=== PATIENT | female | born 1985 | race Two or more races ===

== ENCOUNTER 2023-01-24 11:14 | Outpatient (REF) | payer MEDICAID, SELFPAY ==
[2023-01-24 13:01] LABS: MANUAL DIFF FLAG NO
[2023-01-24 13:18] LABS: Basophils Absolute Auto 0.1 X10*3/uL (0.0-0.2); Basophils Percent Auto 0.7 % (0-2); Eosinophils Absolute Auto 0.1 X10*3/uL (0.0-0.4); Eosinophils Percent Auto 1.6 % (0-4); Hematocrit 39.7 % (37.0-47.0); Hemoglobin 13.1 g/dl (12.0-16.0); Imm Gran Abs Auto 0.02 X10*3/uL (0.00-0.03); Imm Gran Pct Auto 0.3 % (0.0-0.4); Lymphocytes Absolute Auto 2.5 X10*3/uL (1.2-4.9); Lymphocytes Percent Auto 33.3 % (20-40); Mean Corpuscular Hemoglobin 28.9 pg (27.0-33.0); Mean Corpuscular Volume 87.4 fL (80.0-98.0); Mean Platelet Volume 11.4 fL (9.4-12.3); Monocytes Absolute Auto 0.4 X10*3/uL (0.1-1.2); Monocytes Percent Auto 5.4 % (2-11); Neutrophils Absolute Auto 4.5 x10*3/uL (2.0-8.3); Neutrophils Percent Auto 58.7 % (45-73); Platelet Count 289 X10*3/uL (160-400); Red Blood Count 4.54 X10*6/uL (4.20-5.50); Red Cell Distribution Width 13.2 % (11.0-16.0); White Blood Count 7.6 X10*3/uL (4.8-10.8)
[2023-01-24 13:20] LABS: INTERNATIONAL NORM RATIO 0.9 (0.9-1.1); Prothrombin Time 10.8 SEC (11.1-13.3)
[2023-01-24 13:23] LABS: Partial Thromboplastin Time 24.7 SEC (26.0-36.4)
[2023-01-24 13:52] LABS: Erythrocyte Sedimentation Rate 11 MM/HR (0-20)
[2023-01-24 13:53] LABS: Alanine Aminotransferase 18 U/L (0-31); Albumin Level 4.4 g/dL (3.5-5.0); Alkaline Phosphatase 71 U/L (39-117); Anion Gap 12 (12-20); Aspartate Amino Transferase 18 U/L (5-31); Bilirubin Direct 0.2 mg/dL (0.0-0.5); Bilirubin Total 0.6 mg/dL (0.0-1.0); Blood Urea Nitrogen 10 mg/dL (9-16); C Reactive Protein 0.59 mg/dL (< or = 0.50); Calcium 9.5 mg/dL (8.4-10.2); Carbon Dioxide 27 mmol/L (22-29); Chloride 105 mmol/L (96-108); Cholesterol 217 mg/dL (<200); Estimated Glomerular Filt Rate > 60; Glucose Random 104 mg/dL (60-115); HDL Cholesterol 46 mg/dL (>40); LDL Cholesterol Calculated 145 mg/dL (<100); Potassium 3.8 mmol/L (3.3-5.1); Sodium 140 mmol/L (135-145); Total Protein 7.7 g/dL (6.5-8.0); Triglycerides 130 mg/dL (<150)
[2023-01-24 13:57] LABS: Rheumatoid Factor < 13.0 IU/mL (<15.0)
[2023-01-24 13:58] LABS: Estimated Average Glucose 120 mg/dL; Hemoglobin A1c % 5.8 % (<6.0)
[2023-01-24 14:11] LABS: TSH reflex Free T4 0.91 uIU/mL (0.32-4.0)
[2023-01-25 04:52] LABS: HBc Num1 0.04 S/CO (0.00-0.79); HBsAGNum1 0.35 S/CO (0.00-0.99); HIV AB/AG Nonreactive (Nonreactive); HIV Num 1 0.06 S/CO (0.00-0.99); Hepatitis A Antibody IgM 0.14 Index (0-0.79); Hepatitis B Core Antibody Nonreactive (Nonreactive); Hepatitis B Surface Antigen Negative (Negative); ~HepC Num1 0.05 S/CO (0.00-0.79); ~Hepatitis A Antibody IgM Nonreactive (Nonreactive); ~Hepatitis B Surface Antibody REACTIVE (Nonreactive); ~Hepatitis C Antibody Nonreactive (Nonreactive)
[2023-01-30 08:34] LABS: Anti Nuclear Antibody Screen NEGATIVE (NEGATIVE)
== END 2023-01-24 11:15 | disposition home or self-care (01) ==
LOC: HO.HHCL 11:14
PROVIDERS: Visit Provider Internal Medicine
DX: R23.3 Spontaneous ecchymoses (principal); R53.82 Chronic fatigue, unspecified; R52 Pain, unspecified
CPT/HCPCS: 36415; 80048; 80061; 80076; 83036; 84443; 85025; 85610; 85652; 85730; 86038; 86140; 86431; 86704; 86706; 86709; 86803; 87340; 87389

== ENCOUNTER 2023-08-24 11:57 | Outpatient (REF) | payer MEDICAID, SELFPAY ==
[2023-08-24 13:32] LABS: MANUAL DIFF FLAG NO
[2023-08-24 13:42] LABS: Basophils Percent Auto 0.4 % (0-2); Eosinophils Absolute Auto 0.1 X10*3/uL (0.0-0.4); Eosinophils Percent Auto 0.8 % (0-4); Hematocrit 42.6 % (37.0-47.0); Imm Gran Abs Auto 0.02 X10*3/uL (0.00-0.03); Imm Gran Pct Auto 0.2 % (0.0-0.4); Lymphocytes Absolute Auto 3.2 X10*3/uL (1.2-4.9); Lymphocytes Percent Auto 35.5 % (20-40); Mean Corpuscular HGB Conc 32.9 g/dl (31.0-35.0); Mean Corpuscular Hemoglobin 29.2 pg (27.0-33.0); Mean Corpuscular Volume 88.9 fL (80.0-98.0); Mean Platelet Volume 11.5 fL (9.4-12.3); Monocytes Absolute Auto 0.5 X10*3/uL (0.1-1.2); Monocytes Percent Auto 5.1 % (2-11); Neutrophils Absolute Auto 5.2 x10*3/uL (2.0-8.3); Platelet Count 294 X10*3/uL (160-400); Red Blood Count 4.79 X10*6/uL (4.20-5.50); Red Cell Distribution Width 13.1 % (11.0-16.0)
[2023-08-24 14:18] LABS: TSH reflex Free T4 0.59 uIU/mL (0.32-4.0)
== END 2023-08-24 11:58 | disposition home or self-care (01) ==
LOC: HO.HHCL 11:57
PROVIDERS: Visit Provider Nurse Practitioner
DX: N20.0 Calculus of kidney (principal); Z87.898 Personal history of other specified conditions
CPT/HCPCS: 36415; 84443; 85025; 87086

== ENCOUNTER 2024-01-28 11:38 | Outpatient (REF) | payer MEDICAID, SELFPAY ==
[2024-01-28 13:57] LABS: TSH reflex Free T4 0.75 uIU/mL (0.32-4.0)
[2024-01-28 17:08] LABS: Appearance Urine Turbid; Color Urine Yellow; Glucose Urine UA Negative (Negative); Leukocyte Esterase Urine Negative (Negative); Nitrite Urine Negative (Negative); PH 5.5 (5.0-9.0); Specific Gravity - Urine >= 1.030 (1.005-1.025); UMIC TRIGGER UACC YES; Urine Blood Moderate (2+) (Negative); Urine Ketones Negative (Negative); Urine Protein Negative (Neg-Trace)
[2024-01-28 17:48] LABS: WBC Urine 0-5 /HPF (0-5)
[2024-01-28 17:49] LABS: Bacteria Urine Trace (None Seen); Hyaline Casts Urine 0-2 /LPF (0-2); Other Crystals Urine Present
[2024-01-29 17:17] LABS: Follicle Stimulating Hormone 2.3 mIU/mL; Prolactin 6.8 ng/mL
== END 2024-01-28 11:39 | disposition home or self-care (01) ==
LOC: HO.HHCL 11:38
PROVIDERS: Visit Provider Nurse Practitioner
DX: R31.29 Other microscopic hematuria (principal); N91.1 Secondary amenorrhea
CPT/HCPCS: 36415; 81001; 81003; 83001; 84146; 84443

== ENCOUNTER 2024-05-06 11:24 | Outpatient (REF) | payer MEDICAID, SELFPAY ==
[2024-05-06 13:08] LABS: MANUAL DIFF FLAG NO
[2024-05-06 13:21] LABS: Basophils Absolute Auto 0.1 X10*3/uL (0.0-0.2); Basophils Percent Auto 0.6 % (0-2); Eosinophils Absolute Auto 0.1 X10*3/uL (0.0-0.4); Eosinophils Percent Auto 0.6 % (0-4); Hemoglobin 13.4 g/dl (12.0-16.0); Imm Gran Abs Auto 0.02 X10*3/uL (0.00-0.03); Imm Gran Pct Auto 0.2 % (0.0-0.4); Lymphocytes Absolute Auto 3.4 X10*3/uL (1.2-4.9); Lymphocytes Percent Auto 35.4 % (20-40); Mean Corpuscular HGB Conc 32.7 g/dl (31.0-35.0); Mean Corpuscular Hemoglobin 28.9 pg (27.0-33.0); Mean Corpuscular Volume 88.4 fL (80.0-98.0); Mean Platelet Volume 11.8 fL (9.4-12.3); Monocytes Absolute Auto 0.4 X10*3/uL (0.1-1.2); Monocytes Percent Auto 4.5 % (2-11); Neutrophils Absolute Auto 5.7 x10*3/uL (2.0-8.3); Neutrophils Percent Auto 58.7 % (45-73); Platelet Count 293 X10*3/uL (160-400); Red Blood Count 4.64 X10*6/uL (4.20-5.50); Red Cell Distribution Width 12.5 % (11.0-16.0); White Blood Count 9.7 X10*3/uL (4.8-10.8)
[2024-05-07 18:28] LABS: Lutenizing Hormone 23.2 mIU/mL
== END 2024-05-06 11:25 | disposition home or self-care (01) ==
LOC: HO.HHCL 11:24
PROVIDERS: Visit Provider Nurse Practitioner
DX: R23.2 Flushing (principal); N91.1 Secondary amenorrhea
CPT/HCPCS: 36415; 83002; 85025

== ENCOUNTER 2024-11-26 16:26 | Outpatient (REF) | payer MEDICAID, SELFPAY ==
--- OUTSIDE RECORDS SUMMARY | 2014-12-24 13:30 | XMS_ITS | Continuity of Care Document ---
Author Organization [employer] [facility] vices Address [address] [place] [address] Phone Care Team Providers Care Patient Relations Representative Name Role Phone Unavailable Unavailable Unavailable Allergies, [...] Provider Providers Copied on Encounter [facility], [address] [place] [address], [address], [place] tel:[phone] [facility] Adult Medicine No Information 5 No Information [facility], [address] [place], [address], [place] tel:[phone] [facility] No Information 4 No Information [facility], [address] [place], [address], [place] tel:[phone] [facility] PNR (chief complaint) Supervision of other normal 4 No Information [facility], [address] [place], [address], [place] tel:[phone] [facility] routine (chief complaint)s kin rash (chief complaint) SUPERVIS NORMAL 1ST PREG 4 No Information [facility], [address] [place], [address], [place] tel:[phone] [facility] routine (chief complaint) Health supervision of a normal pregnancyU/S dating 4 No Information OFFICE/OUTPA TIENT VISIT, [facility], [address] [place] [address], [address], [place] tel:[phone] [facility] Adult Medicine f/u visit (chief complaint) examination or test, positive resultBackacheEn counters for unspecified administrative purpose 4 No Information [facility], [address] [place] [address], [address], [place] tel:[phone] [facility] Right flank pain/ED follow up (chief complaint)I maging review (chief complaint) Abdominal PainPregnancy examination or test, positive result 4 No Information OFFICE/OUTPA TIENT VISIT, [facility], [address] [place] [address], [address], [place] tel:[phone] [facility] Test (chief complaint) examination or test, positive result state, incidental 4 No Information OFFICE/OUTPA TIENT VISIT, [facility], [address] [place] [address], [address], [place] tel:[phone] [facility] Adult Medicine Rash (chief complaint) DermatitisAbsenc e of menstruation 4 No Information OFFICE/OUTPA TIENT VISIT, [facility], [address] [place] [address], [address], [place] tel:[phone] [facility] Adult Medicine Establish care (chief complaint) AsthmaRoutine Medical ExamEncounters for unspecified administrative purposeHeadacheH earing loss 4 No Information OFFICE/OUTPA TIENT VISIT, [facility], [address] [place] [address], [address], [place] tel:[phone] [facility] Evaluation of abdominal pain (chief complaint)H istory (chief complaint)A bnormal pap (chief complaint) examination or test, negative resultAbdominal PainAbnormal Pap smear of cervix 4 No Information OFFICE/OUTPA TIENT VISIT, [facility], [address] [place] [address], [address], [place] tel:[phone] [facility] Adult Medicine Asthma (chief complaint)C ervical Cancer [...] relative Payers Payer name Insurance type Covered libertarian ID Authorjolynn short(s) JEIMY Wang [id number] Social History Type Description Quantity Date Captured [...] Evaluate and treat ordered Referral Referred To: ENT Ordered: Referrals: ENT. Evaluate and treat ordered Referral Referred To: audiology Ordered: Referrals: audiology. Evaluate and treat Appointment date/timeframe: 03/16/2014 ordered Referral Ordered: Referrals: Pulmonology. Evaluate and treat ordered Patient Education Weeks 6 to 10 of Your P regnancy: After completed History Of Present Illness Encounter Date Complaint History Of Prese nt Illness PNR skin rash routine routine f/u visit + Low VIt. D Elevated Chol. Small blood in urine (less than last labs)Has ob appt tomorrowNo complaints feels well. Right flank pain/ED follow up 29yo @ 6.5wks by LMP (02/06/14) with LEANNE 11/13/14 presents for persistent right flank pain. She reports going to [facility] ED few days ago for pain. Was [...] No prior history of kidney stones, UTI. Imaging review Reviewed ED note s and records: Renal US 03/20/2014: Normal sized kidneys, no signs hydronephrosis or shadowing stones. UA: + large blood, tr protein, mild leuk, neg nitrates and othersCBC wnl, Chem 7 wnl. Test LMP was 02/07/20 14. The patient [...] illness, HTN, hyperlipidemiaAsthmaMental Illness: Has a counselor [facility]. Migraines: 4X a week, N/V/ fatigue, photo and phonophobia when headaches occur. headaches started at age 17 ( 11 years ago). Was previously given motrin without relief. No longer has motrin . Hearing Loss: Uses hearing aides and gets care at [facility] but wants to est care here in [place] for this. Evaluation of abdomi nal pain Reports lower [...] therapyd uring that time. Has appt in [place]-Allergic rhinitis: GuafenisinPSurgH: open appy during pregnancyPOBH: - [...] SH: denies T/E/D. Meds: See above; NKDA Abnormal pap Associated sympt oms include dyspareunia. Additional information: last provider at [facility] told her that after abnormal pap --> colpo bx, results suggestive that she needed surgery . Patient unsure of name of procedure or any details. Records were supposedt o be faxed. not yet in our system. Asthma Onset: 4 days ag o. The [...] Information Instructions Date Instruction Additional Infor mation risk factors identif ied by history anticipated course of c are nutrition and weight gain counseling, special diet HIV and other routine t ests use of any medicatio ns (including supplements, vitamins, herbs, OTC drugs) environmental / work hazards tobacco (ask, advise , assess, assist and arrange) alcohol illicit / recreational drugs travel smoking counseling domestic violence seat belt use childbirth classes / hospital facilities toxoplasmosis precau tions (cats / raw meat) sexual activity exercise indications for ultrasound influenza vaccine Has OB appt tomorrow : Review labs with OB After delivery consider MMR vaccine. f/u prn f/u with Ob as recommended. Related to Encounters for unspecified administrative purpose Records from [facility] providers were already reshceduled. Keep headache diary [...]
--- OUTSIDE RECORDS SUMMARY | 2024-11-26 16:39 | XMS_ITS | Clinical Summary ---
Author Organization [employer] [facility] ity Address [address] [place] [address] Care Team Providers Care Substation Operator Helper Generation Name Role Phone Coty Parkinson NP Primary Care Provider [phone] Surgical History Surgery Date Site/Laterality Comments APPENDECTOMY PROCEDURE: HISTORICAL APPENDECTOMY Medical History Medical History Date Comments Hyperlipidemia 08/26/2015 DX:Hyperlipidemi a Gestational diabetes mellitus 08/26/2015 DX :Gestational diabetes mellitus Asthma 08/26/2015 DX:Asthma Family History Medical History Relation Name Comments Diabetes Father Hypertension Mother Other: hyperlipidemia Mother Breast cancer Neg Hx Colon cancer Neg Hx Ovarian cancer Neg Hx Prostate cancer Neg Hx Relation Name Status Comments Father Mother Social History Tobacco Use Types Packs/Day Years Used Date Smoking Tobacco: Never Smokeless Tobacco: Never Alcohol Use Standard Drinks/Week Comments No 0 (1 standard drink = 0.6 oz pur e alcohol) Comments Unknown Sex and Gender Information Value Date Recorded Sex Assigned at Not on file Legal Sex Female 2:16 AM EST Gender Identity Not on file Sexual Orientation Not on file Obstetrics History Plan of Treatment Health Maintenance Due Date Last Done Comments Breast Cancer Screening 1983 Hepatitis B Vaccines (1 of 3 - 19+ 3-dose series) 2002 Pneumococcal Vaccine: Pediat rics (0 to 5 Years) and At-Risk Patients (6 to 49 Years) (1 of 2 - PCV) 2002 Cervical Cancer Screening: P ap Smear 06/19/2021 06/19/2018 Cholesterol Screening (Lipid Panel) 04/02/2022 HIV Screening 04/02/2022 Hepatitis C Screening 04/02/2022 Social Influencers of Health Screening 04/02/2022 COVID-19 Vaccine (2023-2 5 season) 2023 Depression Screening 04/30/2024 Influenza Vaccine (#1) 2024 01/15/2018 DTaP,Tdap,and Td Vaccines (2 - Td or Tdap) 11/20/2027 11/19/2017 HIB Vaccines Aged Out No longer eligi ble based on patient's age to complete this topic HPV Vaccines Aged Out No longer eligi ble based on patient's age to complete this topic Hepatitis A Vaccines Aged Out No long er eligible based on patient's age to complete this topic IPV Vaccines Aged Out No longer eligi ble based on patient's age to complete this topic MMR Vaccines Aged Out No longer eligi ble based on patient's age to complete this topic Meningococcal ACWY Vaccine Aged Out N o longer eligible based on patient's age to complete this topic Meningococcal B Vaccine Aged Out No l onger eligible based on patient's age to complete this topic RSV Immunization Patients Un tu 20 months Aged Out No longer eligible b ased on patient's age to complete this topic Varicella Vaccines Aged Out No longer eligible based on patient's age to complete this topic Procedures Procedure Name Priority Date/Time Associated Diagnosis Comments PAP SMEAR Routine 06/19/2018 from Last 3 Months or Most Recently Relevant to Health Maintenance Results * Pap smear (06/19/2018) 06/19/2018 Narrative HISTORICAL TESTING LAB RESULTING AGENCY - 06/21/2018 3:29 PM EST [id number] THINPREP PAP, IMAGED: NEGATIVE FOR SQUAMOUS INTRAEPITHELIAL LESION AND MALIGNANCY . JODI CURRY(ASCP) (CASE ELECTRONICALLY SIGNED 06 21 2018) RESULT OF APTIMA HIGH RISK HPV ASSAY: HIGH RISK HPV: NEGATIVE (SEROTYPES 16,18,31,33,35,39,45,51,52,56,58,59,66,68) COMPLETED ON 2018-06-21 ADEQUACY: SATISFACTORY ENDOCERVICAL/TRANSFORMATION ZONE COMPONENT PRESENT. SOURCE: THINPREP PAP HPV ANY DX: REFLEX 16 AND 18, CERVICAL, IMAGED CLINICAL INFORMATION: HPV ANY DIAGNOSIS. HORMONES, PAP HX 2014 NEG, Z12.4 Kim Higuera [facility] CYTOLOGY ORDERABLES Final Result HISTORICAL TESTING LAB RESULTING AGENCY from Last 3 Months or Most Recently Relevant to Health Maintenance Care Teams Substation Operator Helper Generation Relationship Specialty Start Date End Date Coty Parkinson NP [address] [place] [address] PCP - General 02/11/18
[2024-11-26 18:35] LABS: Hemoglobin A1C 158.8138 umol/L; Total Hemoglobin (HGBA1C) 3612.0917 umol/L
[2024-11-26 18:40] LABS: Anion Gap 15 (12-20); Blood Urea Nitrogen 10 mg/dL (9-16); Calcium 9.5 mg/dL (8.4-10.2); Carbon Dioxide 27 mmol/L (22-29); Chloride 107 mmol/L (96-108); Cholesterol 263 mg/dL (<200); Estimated Glomerular Filt Rate > 60; HDL Cholesterol 46 mg/dL (>40); Potassium 4.5 mmol/L (3.3-5.1); Sodium 144 mmol/L (135-145); Triglycerides 116 mg/dL (<150)
== END 2024-11-26 16:27 | disposition home or self-care (01) ==
LOC: HO.HHCL 16:26
PROVIDERS: PCP Nurse Practitioner; Visit Provider Nurse Practitioner
DX: R73.03 Prediabetes (principal)
CPT/HCPCS: 36415; 80048; 80061; 83036

== ENCOUNTER 2025-03-03 11:43 | Outpatient (REF) | payer MEDICAID, SELFPAY ==
[2025-03-03 13:16] LABS: MANUAL DIFF FLAG NO
[2025-03-03 13:24] LABS: Hematocrit 39.7 % (37.0-47.0); Hemoglobin 13.3 g/dl (12.0-16.0); Imm Gran Abs Auto 0.03 X10*3/uL (0.00-0.03); Imm Gran Pct Auto 0.3 % (0.0-0.4); Lymphocytes Absolute Auto 2.9 X10*3/uL (1.2-4.9); Mean Corpuscular HGB Conc 33.5 g/dl (31.0-35.0); Mean Corpuscular Hemoglobin 29.6 pg (27.0-33.0); Mean Corpuscular Volume 88.2 fL (80.0-98.0); NRBC Abs Auto 0.000 X10*3/uL (0.0-0.012); NRBC Pct Auto 0.0 /100WBC (0.0-0.2); Platelet Count 274 X10*3/uL (160-400); Red Blood Count 4.50 X10*6/uL (4.20-5.50); White Blood Count 8.9 X10*3/uL (4.8-10.8)
[2025-03-03 13:40] LABS: Hemoglobin A1C 152.2736 umol/L
[2025-03-03 13:51] LABS: Alanine Aminotransferase 20 U/L (0-31); Albumin Level 4.7 g/dL (3.5-5.0); Alkaline Phosphatase 86 U/L (39-117); Anion Gap 10 (12-20); Aspartate Amino Transferase 21 U/L (5-31); Blood Urea Nitrogen 14 mg/dL (9-16); Calcium 9.3 mg/dL (8.4-10.2); Carbon Dioxide 25 mmol/L (22-29); Chloride 110 mmol/L (96-108); Cholesterol 246 mg/dL (<200); Estimated Glomerular Filt Rate > 60; HDL Cholesterol 43 mg/dL (>40); Potassium 4.6 mmol/L (3.3-5.1); Sodium 140 mmol/L (135-145); Total Protein 7.8 g/dL (6.5-8.0); Triglycerides 135 mg/dL (<150)
[2025-03-03 14:46] LABS: D Dimer High Sensitivity 343 NG/ML
[2025-03-04 00:54] LABS: CT PCR Urine NOT DETECTED (Not Detect.); NG PCR Urine NOT DETECTED (Not Detect.)
== END 2025-03-03 11:44 | disposition home or self-care (01) ==
LOC: HO.HHCL 11:43
PROVIDERS: PCP Nurse Practitioner Family; Visit Provider Nurse Practitioner Family
DX: R31.29 Other microscopic hematuria (principal)
CPT/HCPCS: 36415; 80053; 80061; 83036; 84443; 85025; 85379; 87086; 87491; 87591

== ENCOUNTER 2025-03-09 15:51 | Emergency (ER) | payer MEDICAID, SELFPAY ==
--- OUTSIDE RECORDS SUMMARY | 2014-12-24 12:30 | XMS_ITS | Continuity of Care Document ---
Author Organization [facility] vices Address [address] [place] [address] Phone Care Team Providers Care Methods Time Analyst Name Role Phone Unavailable Unavailable Unavailable Allergies, Adverse Reactions, Alerts Substance Reaction Status Criticality No Known Allergies Active No Inform ation Medications Medication Instructions Dosage Effective Dates (start - stop) Status Comments albuterol sulfate HFA 90 mcg/actuation aerosol inhaler inhale 2 puff by inhalation route every 4 - 6 hours as needed - Active Needs follow up for more medications. amoxicillin 500 mg tablet take 1 tablet by oral route every 12 hours 500 MG - Active valacyclovir 1 gram tablet take 1 tablet by oral route once daily - Active permethrin 5 % topical cream apply by topical route (thoroughly massage into skin from head to soles of feet) once leave on for 8-14 hr, then remove by thorough washing 0.00 - Active 28 mg iron-800 mcg tablet take 1 by Oral route every day 1 - Active Aveeno Anti-Itch 1 %-3 % lotion apply to skin prn itch - Active Singulair 10 mg tablet take 1 tablet by oral route every day in the evening 10 MG - Active Advair HFA 115 mcg-21 mcg/actuation aerosol inhaler inhale 2 puff by inhalation route 2 times every day in the morning and evening 2.00 puff - Active albuterol sulfate HFA 90 mcg/actuation aerosol inhaler inhale 2 puff by inhalation route every 4 - 6 hours as needed - No Longer Active Problems Condition Type Effective Dates (start - stop) Clini nicki Status Comments No Known Problems Procedures Procedure Date GLOBAL VISIT GLOBAL VISIT GLOBAL VISIT HIV TEST REFUSED OFFICE/OUTPATIENT VISIT, EST GLOBAL VISIT URINE TEST OFFICE/OUTPATIENT VISIT, EST URINE TEST OFFICE/OUTPATIENT VISIT, EST HIV TEST REFUSED OFFICE/OUTPATIENT VISIT, EST URINE TEST URINALYSIS NONAUTO W/O SCOPE OFFICE/OUTPATIENT VISIT, NEW GLUCOSE BLOOD TEST HIV Rapid Test Oral Mucosal HIV-1/HIV-2, SINGLE ASSAY HIV Rapid Test Oral Mucosal OFFICE/OUTPATIENT VISIT, NEW Advance Directives Directive Yes / No Effective Date File Name No Information Encounters Encounter Description Practice Location Reason(s) For Visit Diagnoses Date Provider Providers Copied on Encounter [facility], [address] [place] [address], [address], [place] tel:[phone] [facility] Adult Medicine No Information 5 No Information [facility], [address] [place], [address], [place] tel:[phone] [facility] No Information 4 No Information [facility], [address] [place], [address], [place] tel:[phone] [facility] PNR (chief complaint) Supervision of other normal 4 No Information [facility], [address] [place], [address], [place] tel:[phone] [facility] routine (chief complaint)s kin rash (chief complaint) SUPERVIS NORMAL 1ST PREG 4 No Information [facility], [address] [place], [address], [place] tel:[phone] [facility] routine (chief complaint) Health supervision of a normal pregnancyU/S dating 4 No Information OFFICE/OUTPA TIENT VISIT, [facility], [address] [place] [address], [address], [place] tel:[phone] [facility] Adult Medicine f/u visit (chief complaint) examination or test, positive resultBackacheEn counters for unspecified administrative purpose 4 No Information [facility], [address] [place] [address], [address], [place] tel:[phone] [facility] Right flank pain/ED follow up (chief complaint)I maging review (chief complaint) Abdominal PainPregnancy examination or test, positive result 4 No Information OFFICE/OUTPA TIENT VISIT, [facility], [address] [place] [address], [address], [place] tel:[phone] [facility] Test (chief complaint) examination or test, positive result state, incidental 4 No Information OFFICE/OUTPA TIENT VISIT, [facility], [address] [place] [address], [address], [place] tel:[phone] [facility] Adult Medicine Rash (chief complaint) DermatitisAbsenc e of menstruation 4 No Information OFFICE/OUTPA TIENT VISIT, [facility], [address] [place] [address], [address], [place] tel:[phone] [facility] Adult Medicine Establish care (chief complaint) AsthmaRoutine Medical ExamEncounters for unspecified administrative purposeHeadacheH earing loss 4 No Information OFFICE/OUTPA TIENT VISIT, [facility], [address] [place] [address], [address], [place] tel:[phone] [facility] Evaluation of abdominal pain (chief complaint)H istory (chief complaint)A bnormal pap (chief complaint) examination or test, negative resultAbdominal PainAbnormal Pap smear of cervix 4 No Information OFFICE/OUTPA TIENT VISIT, [facility], [address] [place] [address], [address], [place] tel:[phone] [facility] Adult Medicine Asthma (chief complaint)C ervical Cancer (chief complaint) AsthmaRoutine Medical ExamScreening examination for venereal disease 0-201 4 No Information Family History Family Member Type Diagnosis Age At Onset Problem (finding) Family history of raise d blood lipids Problem (finding) Family history of hyper tension Problem (finding) Family history of Menta l illness Problem (finding) Family history of diabetes mellitus in first degree relative Payers Payer name Insurance type Covered green party ID Authorjolynn short(s) JEIMY Wang [id number] Social History Type Description Quantity Date Captured Comments Sex Female Smoking Status No Information Sexual Orientation Straight or heterosexual Chief Complaint And Reason For Visit No Information Reason For Referral Reason For Referral No Information Plan Of Treatment Date Type Action Status Referral Ordered: Referrals: Dermatology. Evaluate and treat Appointment date/timeframe: 07/22/2014 ordered Referral Ordered: Referrals: Allergy and Immunology. Evaluate and treat ordered Referral Referred To: audiology Ordered: Referrals: audiology. Evaluate and treat Appointment date/timeframe: 03/16/2014 ordered Referral Referred To: ENT Ordered: Referrals: ENT. Evaluate and treat ordered Referral Ordered: Referrals: Pulmonology. Evaluate and treat ordered Patient Education Weeks 6 to 10 of Your P regnancy: After completed History Of Present Illness Encounter Date Complaint History Of Prese nt Illness PNR skin rash routine routine f/u visit + Low VIt. D Elevated Chol. Small blood in urine (less than last labs)Has ob appt tomorrowNo complaints feels well. Imaging review Reviewed ED note s and records: Renal US 03/20/2014: Normal sized kidneys, no signs hydronephrosis or shadowing stones. UA: + large blood, tr protein, mild leuk, neg nitrates and othersCBC wnl, Chem 7 wnl. Right flank pain/ED follow up 29yo @ 6.5wks by LMP (02/06/14) with LEANNE 11/13/14 presents for persistent right flank pain. She reports going to [facility] ED few days ago for pain. Was told her urine was negative except for blood, Renal US was normal and likely related to muscle strain and/or . Was given percocet script for pain control but she threw away the script as was not sure if she was allowed to take narcotic in . Pain is located right flank, intermittent, causes writhing, prevents her from sleeping at night. Denies any blood in urine, dysuria, increased frequency. Denies VB, vaginal discharge or pelvic cramping/pain, N/V/F/C/SOB/CP/MESA/dizziness. No prior history of kidney stones, UTI. Test LMP was 02/07/20 14. The patient had 6 previous pregnancies. Pertinent negatives include anorexia, bleeding, breast tenderness, constipation, edema, fatigue, fever, headache, heartburn, irritability, nausea, pelvic pain, spotting, urinary difficulty, vaginal discharge, vomiting. Additional information: Seen in adult med yesterday and found to have + test, presents today accompanied by partner to establish care, unplanned but accepting of , denies any abd pain or VB. Rash Establish care PMH : mental ill ness (has a counselor) , appendicitis. FMH : DM, bipolar, mental illness, HTN, hyperlipidemiaAsthmaMental Illness: Has a counselor [facility]. Migraines: 4X a week, N/V/ fatigue, photo and phonophobia when headaches occur. headaches started at age 17 ( 11 years ago). Was previously given motrin without relief. No longer has motrin . Hearing Loss: Uses hearing aides and gets care at [facility] but wants to est care here in [place] for this. Abnormal pap Associated sympt oms include dyspareunia. Additional information: last provider at [facility] told her that after abnormal pap --> colpo bx, results suggestive that she needed surgery . Patient unsure of name of procedure or any details. Records were supposedt o be faxed. not yet in our system. Evaluation of abdomi nal pain Reports lower abd pain 3-4 months, mid/suprapubic portion. 4 days/week experiences pain, can last from few minutes to all day. Describes it as contractions. Can not describe any patterns, alleviating factors. She does not pain occurs sometimes with intercourse. No dysuria, hematuria. Reg BM, last yesterday, normal consistency.Did not have pain with Mirena or DMPA. History PMH: -Asthma: Si ngulair, Advair, Albuterol. no hospitalizations/intubations-Bipolar/Depres julee/Anxiety: not on anything currently- more than 5 years no meds. Was in therapyd uring that time. Has appt in [place]-Allergic rhinitis: GuafenisinPSurgH: open appy during pregnancyPOBH: - 6x FT , last 2011. PGynH: Menarche- age11, qmonth menses, x 7days, 6-7 pads/day, dysmenorrhea. No contraception since DMPA given 08/2013. Contraception history: Mirena, DMPA. Sexually active but is unable to continue due to lower abd pain. Partners: 1, x2 years, male, heterosexual. HSV- unknown last outbreak. Denies GC/CT/other STD. SH: denies T/E/D. Meds: See above; NKDA Asthma Onset: 4 days ag o. The initial visit date was 02/16/2014. The symptoms last 16 Years and have worsened. Context: allergic and nocturnal. Aggravating factors include change in weather. Symptom relief is noted with steroid inhaler. Associated symptoms include dry cough. Additional information: SOB with short setences. No wheezing. Has not taken inhalers for awhile. Albuterol Tx - becomes lightheadded and sneezing.Was taking albuterol, singular, prednisone and advair - last took prior to relocation, about 6-8 months ago. Cervical Cancer PAP Test showed +HPV with cone bx showed she required a surgery. Functional Status Date Functional Assessmen t No Information Instructions Date Instruction Additional Infor mation HIV and other routine t ests risk factors identif ied by history anticipated course of c are nutrition and weight gain counseling, special diet use of any medicatio ns (including supplements, vitamins, herbs, OTC drugs) environmental / work hazards tobacco (ask, advise , assess, assist and arrange) alcohol illicit / recreational drugs domestic violence seat belt use childbirth classes / hospital facilities travel smoking counseling toxoplasmosis precau tions (cats / raw meat) sexual activity exercise indications for ultrasound influenza vaccine Has OB appt tomorrow : Review labs with OB After delivery consider MMR vaccine. f/u prn f/u with Ob as recommended. Related to Encounters for unspecified administrative purpose Records from [facility] providers were already reshceduled. Keep headache diary and f/u in 2-4 weeks states she wasnt having menstruation with labs therefore will repeat the UA for blood. Additional labs for PCP. Will refer to ENT and audiology Referred to pulmonology for asthma and optometry Related to Encounters for unspecified administrative purpose - Restarted and refi lled asthma medications. - Start mucinex - RTC for eval and chronic condition management. Related to Asthma Assessments Type Assessment Date No Information Patient Care Teams Name Effective Dates (start - stop) Status Members No Information
--- NOTE | ~2025-03-09 | XR_ITS ---
EXAMINATION: XR CHEST CLINICAL INFORMATION: chest pain COMPARISON: None available. TECHNIQUE: 2 views of the chest were obtained. FINDINGS: No significant abnormality is noted involving the heart, lungs, mediastinum, bony thorax or soft tissues. XR/XR chest 2V IMPRESSION: No acute disease Electronically signed by: Gianluca Jackson MD 03/09/2025 04:20 PM [facility]
--- NOTE | 2025-03-09 15:52 | ECG_ITS ---
Test Reason : CP Blood Pressure : */* mmHG Vent. Rate : 76 BPM Atrial Rate : 76 BPM P-R Int : 158 ms QRS Dur : 78 ms QT Int : 384 ms P-R-T Axes : 62 43 39 degrees QTcB Int : 432 ms Normal sinus rhythm Normal ECG No previous ECGs available Referred By: Generic ED Physician Electronically Signed By: WALLY RAI MD
[2025-03-09 16:07] VITALS: BP 131/77; PULSE 92; RESP 22; TEMP 36.3; O2SAT 98; BMI 34.8
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
[2025-03-09 16:38] LABS: MANUAL DIFF FLAG NO
[2025-03-09 16:40] LABS: Hematocrit 39.8 % (37.0-47.0); Hemoglobin 13.2 g/dl (12.0-16.0); Imm Gran Abs Auto 0.02 X10*3/uL (0.00-0.03); Imm Gran Pct Auto 0.2 % (0.0-0.4); Lymphocytes Absolute Auto 2.9 X10*3/uL (1.2-4.9); Mean Corpuscular HGB Conc 33.2 g/dl (31.0-35.0); Mean Corpuscular Hemoglobin 29.3 pg (27.0-33.0); Mean Corpuscular Volume 88.4 fL (80.0-98.0); NRBC Abs Auto 0.000 X10*3/uL (0.0-0.012); NRBC Pct Auto 0.0 /100WBC (0.0-0.2); Platelet Count 278 X10*3/uL (160-400); Red Blood Count 4.50 X10*6/uL (4.20-5.50); White Blood Count 9.9 X10*3/uL (4.8-10.8)
[2025-03-09 16:55] LABS: Alanine Aminotransferase 14 U/L (0-31); Albumin Level 4.7 g/dL (3.5-5.0); Alkaline Phosphatase 82 U/L (39-117); Anion Gap 12 (12-20); Aspartate Amino Transferase 21 U/L (5-31); Blood Urea Nitrogen 11 mg/dL (9-16); Calcium 9.6 mg/dL (8.4-10.2); Carbon Dioxide 25 mmol/L (22-29); Chloride 109 mmol/L (96-108); Creatinine Clr Calc Pharmacy 97.0; Estimated Glomerular Filt Rate > 60; Magnesium 2.0 mg/dL (1.6-2.6); Potassium 3.9 mmol/L (3.3-5.1); Sodium 142 mmol/L (135-145); Total Protein 7.6 g/dL (6.5-8.0)
[2025-03-09 17:00] LABS: Troponin-I High Sensitivity < 2.7 ng/L (<3.5-17.0)
[2025-03-09 17:10] LABS: VBG HCO3 25 mmol/L (22-26); VBG O2 % Saturation 68.0 %
[2025-03-09 17:11] LABS: Venous Blood Gas Refer to POC result
[2025-03-09 17:16] LABS: Resp Syncy Virus RNA Qual PCR NEGATIVE (Negative); SARS COV2 PCR INHOUSE NEGATIVE (Negative)
[2025-03-09 19:05] VITALS: BP 109/62; PULSE 73; TEMP 36.6; O2SAT 99
--- OUTSIDE RECORDS SUMMARY | 2025-03-09 19:24 | XMS_ITS | Clinical Summary ---
Author Organization [employer] Address [address] [facility] [address] [place] [address] Care Team Providers Care Bomb Loader Name Role Phone Ramo Ruth NELA Primary Care Provider [phone] Allergies Active Allergy Reactions Criticality Noted Date Comments Pineapple Swelling,Rash Low 11/13/2023 Medications glucose blood ([facility] Blood Glucose Test) test strip Use as directly once daily. for IFG 021 Active ivermectin (Stromectol) 3 MG tablet Take 6 tabs orally once, repeat in 1 week 6 tablet 1 023 Active omeprazole (PriLOSEC) [address] capsuleIndication s:Gastroesophagea l reflux disease without esophagitis Take 1 capsule (40 mg) by mouth before breakfast. Do not crush or chew. 90 capsule 1 024 Active valACYclovir (Valtrex) 500 MG tabletIndications :Herpes simplex vulvovaginitis Take 1 tablet (500 mg) by mouth if needed (outbreak). 30 tablet 2 024 Active cholecalciferol (Vitamin D-3) 25 MCG (1000 UT) capsuleIndication s:Vitamin D deficiency Take 1 capsule (25 mcg) by mouth Once per day. 90 capsule 1 024 Active Loratadine-D 24HR 10-240 MG 24 hr tablet Take 1 tablet by mouth Once per day. 024 Active budesonide-formot tacos (Symbicort) 80-4.5 MCG/ACT inhalerIndication s:Mild persistent asthma without complication Inhale 2 puffs in the morning and at bedtime. Rinse mouth with water after use to reduce aftertaste and incidence of candidiasis. Do not swallow. 1 each 2 09/30/2 024 Active albuterol (ProAir HFA) 108 (90 Base) MCG/ACT inhalerIndication s:Mild persistent asthma without complication Inhale 2 puffs every 4 (four) hours if needed for wheezing or shortness of breath. 18 g 2 Active albuterol (2.5 MG/3ML) 0.083% nebulizer solutionIndicatio ns:Mild persistent asthma without complication Take 3 mL (2.5 mg) by nebulization every 6 (six) hours if needed for wheezing or shortness of breath. 75 mL 1 Active montelukast (Singulair) 10 MG tabletIndications :Mild persistent asthma without complication Take 1 tablet (10 mg) by mouth Once per day. 90 tablet 1 Active betamethasone valerate (Valisone) 0.1 % cream Apply topically if needed in the morning and at bedtime (dryness/ max 2w). 15 g Active SUMAtriptan (Imitrex) 25 MG tabletIndications :Nonintractable headache, unspecified chronicity pattern, unspecified headache type Take 1 tablet (25 mg) by mouth 1 (one) time if needed for migraine for up to 9 doses. Take with naproxen and lie down for 30 mins after. May repeat dose once in 2 hours if no relief. Do not exceed 2 doses in 24 hours. 9 tablet Active psyllium (Metamucil Smooth Texture) 58.6 % powderIndications :Constipation, unspecified constipation type Take 5.12 g (3 g of fiber) by mouth 2 times daily. 283 g 2025 Active FREESTYLE LITE test strip Use to test blood sugar 2 times daily 100 each 12 025 2025 Active Lancets misc Use to test blood sugar 2 times daily 100 each Active Alcohol Swabs 70 % pads Use to test blood sugar 2 times daily 100 each Active Blood Glucose Monitoring Suppl (FreeStyle [place] Lite) w/Device kit Use to test blood sugar 2 times daily 1 kit 1 Active metFORMIN XR (Glucophage-XR) 500 MG 24 hr tablet Take 1 tablet (500 mg) by mouth with evening meal. Do not crush, chew, or split. 30 tablet 11 025 2025 Active metFORMIN (Glucophage) 850 MG tabletIndications :Prediabetes Take 1 tablet (850 mg) by mouth Once per day. 30 tablet 1 025 2024 Discontinued Active Problems Problem Noted Date Diagnosed Date Breast screening 03/03/2025 Assessment & Plan (03/03/2025 3:58 PM EST): Orders: BI Mammogram Screening Tomosynthesis Bilateral; Future History of blood clots 03/03/2025 Assessment & Plan (03/03/2025 3:58 PM EST): Orders: D Dimer High Sensitivity; Future Referral to Hematology / Oncology; Future CTA Chest PE Protocal; Future Other fatigue 03/03/2025 Assessment & Plan (03/03/2025 3:58 PM EST): Orders: CBC auto differential; Future TSH W/Reflex to FT4; Future Ganglion cyst 03/03/2025 Assessment & Plan (03/03/2025 3:58 PM EST): Orders: Referral to Orthopaedic Surgery; Future Malar rash 03/17/2024 Assessment & Plan (03/17/2024 2:17 PM EST): It seems to be contact dermatitis, unclear if she is developing rosacea? Start with betamethasone cream bid x 14d max, along with OTC Cerave cream (patient has it at home), avoid scented or cosmetic creams Avoid make up this week, including mascara Use gentle facial soap and fu with PCP Microscopic hematuria 01/28/2024 Assessment & Plan (03/03/2025 3:58 PM EST): Orders: Referral to Urology; Future Chlamydia/N. Gonorrhoeae, PCR, Urine Culture, Urine, Routine; Future POCT Urinalysis Assessment & Plan (01/28/2024 12:07 PM EDT): -UA completed today noted to have moderate amount of blood. This is unchanged from previous testing in July 2023 -Renal US ordered and patient strongly encouraged to call for an appointment -UA with microscopy ordered -follow-up 1 month Routine adult health maintenance 12/07/2023 History of palpitations 11/13/2023 Assessment & Plan (11/13/2023 2:16 PM EDT): -unsure of etiology of her symptoms. May be dehydration, orthostatic hypotension or atypical migraine -POCT glucose of 121 mg/dL does not support hyper or hypo glycemic cause for her symptoms -will order CBC and TSH to evaluate for physiology/ metabolic contributions to her symptoms -advised to increase fluid intake -ED precautions reviewed -will call with lab results Abnormal partial thromboplastin time (PTT) 02/15 Prediabetes 02/15/2023 Assessment & Plan (03/03/2025 3:58 PM EST): Orders: Comprehensive Metabolic Panel; Future Hemoglobin A1c; Future Lipid Panel, Standard; Future Assessment & Plan (02/15/2023 12:25 PM EDT): Today extensive discussion was done about life style modifications I advise healthy diet (low calorie) and cardiovascular exercise Dyslipidemia 02/15/2023 Assessment & Plan (02/15/2023 12:26 PM EDT): Today extensive discussion was done about life style modifications I advise healthy diet (low calorie) and cardiovascular exercise Abnormal bruising 01/23/2023 Chronic fatigue 01/23/2023 Diffuse pain 01/23/2023 Cholelithiasis without obstruction 04/06/2022 Chronic pulmonary embolism (CMS/HCC) 04/06/2022 Gestational diabetes mellitu s (GDM) affecting ninth 04/06/2022 Kidney stone 04/06/2022 Assessment & Plan (11/13/2023 2:05 PM EDT): -may be the cause of her right flank pain -POCT urinalysis negative for infection, positive for blood. Will send for culture and treat accordingly -low suspicion for acute stone however given flank pain and hematuria, will complete renal US to evaluate robert structures -will repeat UA in 6 weeks and complete work-up for hematuria is still present Mixed anxiety and depressive disorder 04/06/2022 Mild persistent asthma without complication 11/2021 Assessment & Plan (01/28/2024 11:58 AM EDT): -poorly controlled at this time. ACT score 6 today -start Symbicort for maintenance. -continue albuterol HFA and liquid use as needed. Will process DME for nebulizer machine -continue loratadine for allergy symptoms -ED precautions reviewed -follow-up 1 month History of cholecystectomy 06/17/2021 Impaired fasting glucose 12/16/2020 Asthma 04/30/1959 Bipolar disorder 04/30/1959 Encounters Date Type Department Care Team Description 03/09/2025 Orders Only [facility] External Provider, [facility] 03/09/2025 Telephone [facility] [address] [place] [phone] Ruth Ralph NP April03/04/2025 Refill [facility] [address] [place] [phone] Ruth Ralph NP 03/03/2025 11:00 AM EST Office Visit [address] [address] Ruth Ralph NP Microscopic hematuria (Primary Dx); Prediabetes; Breast screening; History of blood clots; Other fatigue; Ganglion cyst 03/03/2025 Telephone [facility] [address] [place] [address] Ruth Ralph NP results 03/03/2025 Travel 02/24/2025 Patient Outreach [facility] [address] [place] [address] Ruth Ralph NP Pre-visit Planning (SDOH was already completed) 01/26/2025 Telephone [facility] [address] [place] [phone] Ruth Ralph NP Medication Question (Pt was given morphine 850 mg for type 2 diabetes and high cholestrol. PT explains she is worried about taking the medication due to having asthma. PT wants to be better advised/ counsoled on medication before taking it ) 01/15/2025 Orders Only [facility] [address] [place] [address] Veronica Driscoll NP Prediabetes (Primary Dx) 01/14/2025 Results Follow-Up [facility] [address] [facility] [place] [address] Veronica Driscoll NP Lipid Panel, Standard, Hemoglobin A1c, Basic Metabolic Panel 01/09/2025 1:15 PM EDT Office Visit [facility] [address] [place] [address] Reagan, Nuzhat, OD Astigmatism of both eyes, unspecified type (Primary Dx) 01/09/2025 Telephone [facility] [address] [place] [address] Ruth Ralph NP December Recall from Last 3 Months Immunizations Immunization Administration Dates Next Due Hep B, adult 11/29/2007 Influenza Injectable Quadriv alant Preservative Free IIV4 MDCK 01/15/2018 Influenza, IIV3, injectable 05/08/2019 Influenza, Split (incl. suresh fied surface antigen) 02/07/2013 MMR 09/09/2019 Rabies Immune Globulin 12/30/2010 Rabies, IM Diploid Cell Culture 12/30/2010 Tdap 07/17/2019, 8,04/26/2011,2010,05/11/2009 Family History Medical History Relation Name Comments Cancer Father Diabetes Father Heart disease Father Hyperlipidemia Father Hypertension Father Kidney disease Father Glaucoma Mother Hyperlipidemia Mother Relation Name Status Comments Father Mother Social History Tobacco Use Types Packs/Day Years Used Date Smoking Tobacco: Never Passive Smoke Exposure: Never Smokeless Tobacco: Never Tobacco Cessation:Counseling Given: Not Answered Alcohol Use Standard Drinks/Week Comments Never 0 (1 standard drink = 0.6 oz pur e alcohol) Alcohol Answer Date Recorded How often do you have a drink containing alcohol ? 0 11/13/2023 Average Number of Drinks Not on file 024 How often do you have six or more drinks on one occasion? 0 11/13/2023 Depression Answer Date Recorded Patient Health Questionnaire-9 Score 0 11/26/2024 Patient Health Questionnaire-9 Score 0 11/26/2024 Last PHQ-9: Questionnaire Data Not on file 0 11/26/2024 Housing Stability Answer Date Recorded What is your housing situation today? I have joaquin nice 11/26/[address] you li ve. Do you have problems with any of the following? None of the above 11/26/2024 Food Insecurity Answer Date Recorded Within the past 12 months, y ou worried that your food would run out before you got money to buy more: Never True 11/26/2024 Within the past 12 months,th e food you bought just didn't last and you didn't have enough money to get more: Never True Transportation Answer Date Recorded In the past 12 months, has l ack of transportation kept you from medical appts, meetings, work or from getting things needed for daily living? No 11/26/2024 Utilities Answer Date Recorded In the past 12 months, has t he electric, gas, oil or water company threatened to shut off services in your home? No 11/26/2024 Depression Answer Date Recorded Patient Health Questionnaire-2 Score 0 11/26/2024 Internet Access Answer Date Recorded Internet Access Q1 Yes 11/26/2024 Internet Access Q2 Not on file 11/26/2024 Comments No Sex and Gender Information Value Date Recorded Sex Assigned at Female 02/27/2022 10:16 AM EDT Legal Sex Female 10:16 AM EDT Gender Identity Female 02/27/2022 10:16 AM EDT Sexual Orientation Straight 02/27/2022 10 :16 AM EDT Last Filed Vital Signs Vital Sign Reading Time Taken Comments Blood Pressure 130/80 03/03/2025 10:50 AM EST Pulse 86 03/03/2025 10:50 AM EST Temperature 36.8 C (98.3 F) 03/03/2025 10:50 AM EST Respiratory Rate 14 03/03/2025 10:50 AM EST Oxygen Saturation 99% 03/03/2025 10:50 AM EST Inhaled Oxygen Concentration - - Weight 87.3 kg (192 lb 8 oz) 03/03/2025 10:50 AM EST Height 161.9 cm (5' 3.73 ) 03/03/2025 10:[address] Body Mass Index 33.32 03/03/2025 10:50 AM EST Plan of Treatment Upcoming Encounters Date Type Department Care Team (Late st Contact Info) Description 05/20/2025 11:30 AM EST Office Visit [facility] [address] [place] [address] Ruth Ralph, NELA [address] [place], [place] [phone] Health Maintenance Due Date Last Done Comments Family Planning (PISQ) 1998 HPV Vaccines (1 - 3-dose series) 1998 Pneumococcal Vaccine: Pediatrics (0 to 5 Years) and At-Risk Patients (6 to 49) Years (1 of 2 - PCV) 2002 Mammogram 2023 Cervical Cancer Screening 04/10/2024 HPV/Cotest 04/10/2024 04/10/2019 Pap Smear 04/10/2024 04/10/2019 COVID-19 Vaccine ( season) 2024 Influenza Vaccine (#1) 2024 , 01/15/2018, 02/07/2013 Depression Screening 11/26/2025 11/26/2024, 11/27/19 25 Disability Screening 11/26/2025 11/26/2024 SDOH Screening 11/26/2025 11/26/2024 Alcohol/Substance Use Screening 03/03/2026 03/03/2025 Diabetes: Hemoglobin A1C 03/03/2026 025, 11/26/2024, 01/24/2023, Additional history exists Tobacco Screening 03/03/2026 03/03/2025 DTaP/Tdap/Td Vaccines (6 - Td or Tdap) 07/16/2029 07/17/2019, 11/19/2017, 04/26/2011, Additional history exists Zoster Vaccines (1 of 2) 2033 RSV Patients and Patients Aged 60 years or older (1 - 1-dose 75+ series) 2058 Hepatitis B Vaccines Discontinued 11/29/2007 HIV Screening Completed 01/24/2023, 06/17/2021 Hepatitis C Screening Completed 01/24/2023, 022 HIB Vaccines Aged Out No longer eligi [...] patient's age to complete this topic Meningococcal Vaccine Aged Out No himanshu shayy eligible based on patient's age to complete this topic RSV under 20 months Aged Out No longe r eligible based on patient's age to complete this topic Rotavirus Vaccines Aged Out No longer eligible based on patient's age to complete this topic Procedures Procedure Name Priority Date/Time Associated Diagnosis Comments VENOUS BLOOD GAS Routine 03/09/2025 4:39 PM EST HIGH SENSITIVITY TROPONIN I Routine 03/09/2025 4:31 PM EST MAGNESIUM Routine 03/09/2025 4:31 PM EST COMPREHENSIVE METABOLIC PANEL Routine 03/09/2025 4:31 PM EST CBC WITH AUTO DIFFERENTIAL Routine 03/09/2025 4:31 PM EST SARS COV2/INFLUENZA A/B AND RSV RNA QL NAAT Routine 03/09/2025 4:31 PM EST XR CHEST 2 VIEWS Routine 03/09/2025 4:10 PM EST LIPID PANEL, STANDARD Routine 03/03/2025 11:55 AM EST Prediabetes TSH W/REFLEX TO FT4 Routine 03/03/2025 1 1:55 AM EST Other fatigue CBC WITH AUTO DIFFERENTIAL Routine 03/03/2025 11:55 AM EST Other fatigue HEMOGLOBIN A1C Routine 03/03/2025 11:55 AM EST Prediabetes COMPREHENSIVE METABOLIC PANEL Routine 03/03/2025 11:55 AM EST Prediabetes D DIMER HIGH SENSITIVITY Routine 03/03/2025 11:55 AM EST History of blood clots POCT URINALYSIS DIPSTICK Routine 03/03/2025 11:49 AM EST Microscopic hematuria CHLAMYDIA/TRICHOMONAS/ NEISSERIA GONORRHOEAE, PCR, URINE Routine 03/03/2025 11:46 AM EST Microscopic hematuria CULTURE, URINE, ROUTINE Routine 03/03/2025 12:00 AM EST Microscopic hematuria HEPATITIS PANEL, GENERAL Routine 01/24/2023 11:28 AM EDT Chronic fatigue HIV ANTIBODY/ANTIGEN ([place] DPH) Routine 01/24/2023 11:28 AM EDT HM PAP/HPV Routine 04/10/2019 from Last 3 Months or Most Recently Relevant to Health Maintenance Results * (ABNORMAL) VENOUS BLOOD GAS (03/09/2025 4:39 PM EST) VBG pH 7.44(H) 7.32 - 7.43 [facility] Comment:METER #: [id number] additional_comment: Cb rojascr VBG PCO2 36 mmHg [facility] Comment:METER #: [id number] additional_comment: Cb rojascr VBG PO2 49 mmHg [facility] Comment:METER #: [id number] additional_comment: Cb rojascr VBG Base Excess 1.7 mmol/L [facility] Comment:METER #: [id number] additional_comment: Cb rojascr VBG HCO3 25 22 - 26 mmol/L [facility] Comment:METER #: [id number] additional_comment: Cb rojascr O2 Sat, Stuart 68.0 % [facility] Comment:METER #: [id number] additional_comment: Cb meliscr 03/09/2025 4:39 PM EST 03/09/2025 5:10 PM EST us Generic External Data Provider LAB BLOOD ORDERAB LES Final Result [facility] [address] [place] [address] [phone] * High Sensitivity Troponin I (03/09/2025 4:31 PM EST) Pathologist [facility] TROPONIN I HIGH SENSITIVITY <2.7 <3.5 - 17.0 ng/L [facility] Comment:[place] high sens itivity Troponin-I results should beused in conjunction with other diagnostic information suchas ECG, clinical observations and information, and patientsymptoms to aid in the diagnosis of NM. 03/09/2025 4:31 PM EST 03/09/2025 4:36 PM EST us Generic External Data Provider LAB BLOOD ORDERAB LES Final Result [facility] [address] [place] [phone] * SARS-CoV-2 RNA, Influenza A/B, and RSV RNA, Ql NAAT (03/09/2025 4:31 PM EST) [facility] Influenza A PCR NEGATIVE Negative [facility] Influenza B PCR NEGATIVE Negative [facility] Resp Syncy Virus RNA Qual PCR NEGATIVE Negative [facility] SARS COV2 PCR NEGATIVE Negative [facility] Comment:All test results mus t be correlated with clinical findings.Negative results do not preclude SARS-CoV2, influenza Avirus, influenza B virus and/or RSV infectionand should not be used as the sole basis for treatment orother patient management decisions. Negative results must becombined with clinical observations, patient history, andepidemiological information.This test has not been evaluated for monitoring treatment ofinfection.This test has been authorized by the FDA under an EmergencyUse Authorization (EUA) for use by authorized laboratories.Testing performed on the [employer] GeneXpert utilizingreal-time RT-PCR.All SARS CoV2 and positive influenza A/B results arereported to [facility]. 03/09/2025 4:31 PM EST 03/09/2025 4:36 PM EST us Generic External Data Provider LAB MICROBIOLOGY - GENERAL ORDERABLES Final Result [facility] [address] [place] [address] [phone] * CBC auto differential (03/09/2025 4:31 PM EST) Only the most recent of2 resultswithin the time period is included. White Blood Count 9.9 4.8 - 10.8 X10*3/uL [facility] Red Blood Count 4.50 4.20 - 5.50 X10*6/uL [facility] Hemoglobin 13.2 12.0 - 16.0 g/dl [facility] Hematocrit 39.8 37.0 - 47.0 % [facility] Mean Corpuscular Volume 88.4 80.0 - 98.0 fL [facility] Mean Corpuscular Hemoglobin 29.3 27.0 - 33.0 pg [facility] Mean Corpuscular HGB Conc 33.2 31.0 - 35.0 g/dl [facility] Red Cell Distribution Width 12.8 11.0 - 16.0 % [facility] Platelet Count 278 160 - 400 X10*3/uL [facility] Mean Platelet Volume 11.1 9.4 - 12.3 fL [facility] Neutrophils Percent Auto 62.9 45 - 73 % [facility] Imm Gran Pct Auto 0.2 0.0 - 0.4 % [facility] Lymphocytes Percent Auto 29.3 20 - 40 % [facility] Monocytes Percent Auto 6.1 2 - 11 % [facility] Eosinophils Percent Auto 0.9 0 - 4 % [facility] Basophils Percent Auto 0.6 0 - 2 % [facility] NRBC Pct Auto 0.0 0.0 - 0.2 /100WBC [facility] Neutrophils Absolute Auto 6.2 2.0 - 8.3 x10*3/uL [facility] Imm Gran Abs Auto 0.02 0.00 - 0.03 X10*3/uL [facility] Lymphocytes Absolute Auto 2.9 1.2 - 4.9 X10*3/uL [facility] Monocytes Absolute Auto 0.6 0.1 - 1.2 X10*3/uL [facility] Eosinophils Absolute Auto 0.1 0.0 - 0.4 X10*3/uL [facility] Basophils Absolute Auto 0.1 0.0 - 0.2 X10*3/uL [facility] NRBC Abs Auto 0.000 0.0 - 0.012 X10*3/uL [facility] 03/09/2025 4:31 PM EST 03/09/2025 4:36 PM EST us Generic External Data Provider LAB BLOOD ORDERAB LES Final Result Performing Organization Address [facility]/ZIP Co de Phone Number [facility] [address] [place] [phone] * Magnesium (03/09/2025 4:31 PM EST) Pathologist [facility] Magnesium 2.0 1.6 - 2.6 mg/dL [facility] 03/09/2025 4:31 PM EST 03/09/2025 4:36 PM EST Generic External Data Provider LAB BLOOD ORDERAB LES Final Result Performing Organization Address [facility] de Phone Number [facility] [address] [place] [phone] * (ABNORMAL) Comprehensive Metabolic Panel (03/09/2025 4:31 PM EST) Only the most recent of2 resultswithin the time period is included. Sodium 142 135 - 145 mmol/L [facility] Potassium 3.9 3.3 - 5.1 mmol/L [facility] Chloride 109(H) 96 - 108 mmol/L [facility] Carbon Dioxide 25 22 - 29 mmol/L [facility] Anion Gap 12 12 - 20 [facility] Urea Nitrogen (BUN) 11 9 - 16 mg/dL [facility] Creatinine, Serum 0.77 0.5 - 1.4 mg/dL [facility] Creatinine Clr Calc Pharmacy 97.0 [facility] Comment:Provided height and weight: 157.48 cm,86.3 kg.eGFR (calculated from the MDRD study equation) and eCrCl(calculated from the Cockcroft-Gault equation) are based ondifferent parameters and may not yield comparable results.If eCrCl result is absurd, please check patient'sheight/weight. Estimated Glomerular Filt Rate >60 [facility] Comment:Chronic Kidney Disea se: Estimated GFR < 60 mL/min/[id number] Kidney Disease: Estimated GFR < 15 mL/min/1.73m2 Glucose 77 60 - 115 mg/dL [facility] Calcium 9.6 8.4 - 10.2 mg/dL [facility] Bilirubin, Total 0.3 0.0 - 1.0 mg/dL [facility] Aspartate Amino Transferase 21 5 - 31 U/L [facility] Alanine Aminotransferase 14 0 - 31 U/L [facility] Total Protein 7.6 6.5 - 8.0 g/dL [facility] Albumin Level 4.7 3.5 - 5.0 g/dL [facility] Alkaline Phosphatase 82 39 - 117 U/L [facility] 03/09/2025 4:31 PM EST 03/09/2025 4:36 PM EST us Generic External Data Provider LAB BLOOD ORDERAB LES Final Result [facility] [address] [place] [address] [phone] * XR Chest 2 Views (03/09/2025 4:10 PM EST) Anatomical Region Laterality Modality Chest Radiographic Jenny ging 03/09/2025 4:10 PM EST Narrative 03/09/2025 4:23 PM EST [address] [address] XRay Report Signed Patient: Greta Luz MR#: [id number] 33 : 1985 Acct:[id number] Age/Sex: 40 / F ADM Date: 03/09/25 Loc: HO.ED Attending Dr: Ordering Physician: Sara Trejo Date of Service: 03/09/25 Procedure(s): XR chest 2V Accession Number(s): [id number] cc: Sara Trejo; Ruth Ralph PART TIME RECEPTIONIST Reason for Exam: chest pain EXAMINATION: XR CHEST CLINICAL INFORMATION: chest pain COMPARISON: None available. TECHNIQUE: 2 views of the chest were obtained. FINDINGS: No significant abnormality is noted involving the heart, lungs, mediastinum, bony thorax or soft tissues. XR/XR chest 2V IMPRESSION: No acute disease Electronically signed by: Gianluca Jackson MD 03/09/2025 04:20 PM EST Dictated By: Gianluca Jackson MD Signed By: <Electronically signed by Gianluca Jackson MD in OV> 03/09/25 1620 DD/ 1610 TD/TT: 03/09/25 1615 Kier Boiler: Procedure Note Donotuseinterpreter, Image - 03/09/[address] [address] XRay Report Signed Patient: Greta Luz LMR#: [id number] 31 : 1985Acct:[id number] Age/Sex: 40 / FADM Date: 03/09/25 Loc: .ED Attending Dr: Ordering Physician: Sara Trejo Date of Service: 03/09/25 Procedure(s): XR chest 2V Accession Number(s): [id number] cc: Sara Trejo; Ruth Ralph PART TIME RECEPTIONIST Reason for Exam: chest pain EXAMINATION: XR CHEST CLINICAL INFORMATION: chest pain COMPARISON: None available. TECHNIQUE: 2 views of the chest were obtained. FINDINGS: No significant abnormality is noted involving the heart, lungs, mediastinum, bony thorax or soft tissues. XR/XR chest 2V IMPRESSION: No acute disease Electronically signed by: Gianluca Jackson MD 03/09/2025 04:20 PM EST RP Dictated By: Gianluca Jackson MD Signed By: <Electronically signed by Gianluca Jackson MD in OV> 03/09/25 1620 DD/ 1610 TD/TT: 03/09/25 1615 Kier Boiler: [facility] at [place] External Provider IMG XR PROCEDURES Edited Result - Final * D Dimer High Sensitivity (03/03/2025 11:55 AM EST) Pathologist [facility] D Dimer High Sensitivity 343 NG/ML [facility] Comment:Results of DDIMER ca lled to KARLI Birch RN on 03/03/25at 1446 by LOY.D-DIMER HS REFERENCE RANGENote: Our assay reports D-Dimer Units (D- DU).The cut-off value for venous thromboembolic (VTE) disease is230 ng/mL. This value has a very high negative predictivevalue when the patient has a low to moderate clinicalprobability of VTE.The upper limit of normal is 243 ng/mL. Blood 03/03/2025 11:5 5 AM EST 03/03/2025 1:12 PM EST Result [facility] Ruth Ralph PART TIME RECEPTIONIST LAB BLOOD ORDERABLES Final Resul t [facility] [address] [place] [phone] * TSH W/Reflex to FT4 (03/03/2025 11:55 AM EST) Pathologist [facility] TSH reflex Free T4 0.62 0.32 - 4.0 uIU/mL [facility] Blood Venous blood specimen / Unknown 03/03/2025 11:55 AM EST 03/03/2025 1:12 PM EST Ruth Graef PART TIME RECEPTIONIST LAB BLOOD ORDERABLES Final Resul t Performing Organization Address [facility] Co de Phone Number [facility] [address] [place] [phone] * (ABNORMAL) Hemoglobin A1c (03/03/2025 11:55 AM EST) Hemoglobin A1c 6.2(H) <6.0 % [facility] Comment:Hemoglobin A1C Refer ence Range Adults: 4.8 - 6.0 % Non diabetic: < 6.0 % Goal: < 7.0 %Additional Action Suggested: > 8.0 %Note: Hemoglobin A1c results are invalid for patients with abnormal amounts of HbF. Blood transfusions may impact the HbA1c concentration in the patient sample. Estimated Average Glucose 131 mg/dL [facility] Comment:eAG = Estimated ave rage glucose which is %A1C expressed asaverage glucose, using the formula of the J7W-YtevxapIropbvo Glucose study (ADAG), Diabetes Care, Vol.31,#8,Nov. 2007 Blood Venous blood specimen / Unknown 03/03/2025 11:55 AM EST 03/03/2025 1:12 PM EST us Ruth Ralph PART TIME RECEPTIONIST LAB BLOOD ORDERABLES Final Resul t Performing Organization Address [facility] Co de Phone Number [facility] [address] [place] [phone] * (ABNORMAL) Lipid Panel, Standard (03/03/2025 11:55 AM EST) Triglycerides 135 <150 mg/dL [facility] Comment:Desirable Triglyceri de: less than 150 mg/dLBorderline High Triglyceride 150-199 mg/dLHigh Triglyceride: 200-499 mg/dLVery High Triglyceride: greater than or equal to 5OO mg/dL Cholesterol 246(H) <200 mg/dL [facility] Comment:Desirable Cholestero l: less than 200 mg/dLBorderline High Cholesterol: 200-239 mg/dLHigh Cholesterol: greater than 239 mg/dL LDL Cholesterol Calculated 176(H) <100 mg/dL [facility] Comment:Desirable LDL: less than 100 mg/dLNear Optimal/Above Optimal LDL: 110- 129 mg/dLBorderline High LDL: 130-159 mg/dLHigh LDL: 160-189 mg/dLVery High LDL: greater than or equal to 190 mg/dL HDL Cholesterol 43 >40 mg/dL [facility] Comment:Desirable HDL: great er than 40 mg/dL Note: This HDL assay may give artificially low results in patients with liver disease. Blood Venous blood specimen / Unknown 03/03/2025 11:55 AM EST 03/03/2025 1:12 PM EST Ruth Ralph NP LAB BLOOD ORDERABLES Final Resul t [facility] [address] [place] [phone] * (ABNORMAL) POCT Urinalysis (03/03/2025 11:49 AM EST) Color, UA Yellow Clarity, UA Clear Glucose, UA Negative Bilirubin, UA Negative Ketones, UA Negative Spec Grav, UA 1.030 Blood, UA Positive(A) Negative, None Detected Comment:Moderate pH, UA 5.5 Protein, UA Trace Urobilinogen, UA 1.0 Leukocytes, UA Negative Negative, Rare, Trace Nitrite, UA Negative Negative, None Detected Appearance, UA clear QC Media Lot # [id number] Lot# Expiration Date [id number] Urine (Urine, Random) 03/03/2025 11:49 AM EST Ruth Ralph NP POINT OF CARE TEST ENTER/EDIT OR DERABLES Final Result * Chlamydia/N. Gonorrhoeae, PCR, Urine (03/03/2025 11:46 AM EST) CT PCR, Urine NOT DETECTED Not Detect. [facility] Comment:A not detected test result does not exclude the possibilityof infection because test results can be affected byimproper specimen collection, concurrent antibiotic therapy,or the number of organisms in the specimen which may bebelow the sensitivity of the test. As with many diagnostictests, results from the Xpert CT/NG assay should beinterpreted in conjunction with other laboratory andclinical data available to the clinician.The Xpert CT/NG assay should not be used for the evaluationof suspected sexual abuse or for other medico-legalindications. Additional testing is recommended in anycircumstance when false positive or false negative resultscould lead to adverse medical, social or psychologicalconsequences. NG PCR, Urine NOT DETECTED Not Detect. [facility] Comment:A not detected test result does not exclude the possibilityof infection because test results can be affected byimproper specimen collection, concurrent antibiotic therapy,or the number of organisms in the specimen which may bebelow the sensitivity of the test. As with many diagnostictests, results from the Xpert CT/NG assay should beinterpreted in conjunction with other laboratory andclinical data available to the clinician.The Xpert CT/NG assay should not be used for the evaluationof suspected sexual abuse or for other medico-legalindications. Additional testing is recommended in anycircumstance when false positive or false negative resultscould lead to adverse medical, social or psychologicalconsequences. Urine (Urine, Random) 03/03/2025 11:46 AM EST 03/03/2025 6:23 PM EST Ruth Ralph PART TIME RECEPTIONIST LAB URINE ORDERABLES Final Resul t Performing Organization Address [facility] Co de Phone Number [facility] [address] [place] [phone] * Culture, Urine, Routine (03/03/2025 12:00 AM EST) Urine Urine specimen obtained by clean catch procedure / Unknown 03/03/2025 03/03/2025 Comment:[facility] Narrative [facility] - 03/05/2025 11:05 AM EST Urine Culture No growth. Specimen Source: Urine clean catch Ruth Ralph NP LAB MICROBIOLOGY - GENERAL ORDER TATI Final Result Performing Organization Address City/[facility]/ZIP Co de Phone Number [facility] [address] [place] [phone] * HIV Ab/Ag (AMAN NAVA) (01/24/2023 11:28 AM EDT) Pathologist [facility] HIV AB/AG Nonreactive Nonreactive [facility] Comment:HIV-1 p24 Ag and/or HIV-1/HIV-2 Ab not detected.A test result that is nonreactive does not exclude thepossibility of exposure to or infection with HIV-1 and/orHIV-2. Nonreactive results in this assay for individualswith prior exposure to HIV-1 and/or HIV-2 may be due toantigen and antibody levels that are below the limit ofdetection of this assay.The [employer] HIV Ag/Ab Combo assay result andsupplemental assay results should be interpreted inconjunction with the patient's clinical presentation,history and other laboratory results. If the results areinconsistent with clinical evidence, additional testing issuggested to confirm the result. 01/24/2023 11:2 8 AM EDT 01/24/2023 12:56 PM EDT us Tracey Shultz MD LAB BLOOD ORDERABLES Final Result [facility] [address] [place] [phone] * Hepatitis A,B,C Profile (01/24/2023 11:28 AM EDT) Pathologist [facility] Hepatitis A IgM Nonreactive Nonreactive [facility] Comment:IgM antibodies to MESA V not detected; does not exclude earlyacute or recovered HAV infection. ~Hepatitis B Surface Antibody REACTIVE Nonreactive [facility] Comment:REACTIVE: > 11.99 mI U/mL Hepatitis B Core Antibody Nonreactive Nonreactive [facility] Hepatitis C Antibody Nonreactive Nonreactive [facility] Comment:Antibodies to HCV no t detected; does not exclude early acuteHCV infection. Hepatitis B Surface Ag Negative Negative [facility] Blood Venous blood specimen / Unknown 01/24/2023 11:28 AM EDT 01/24/2023 12:56 PM EDT us Tracey Shultz MD LAB BLOOD ORDERABLES Final Result [facility] [address] [place] [phone] * Hm Pap Smear (04/10/2019) Pap Negative for intraephithelial lesion or malignancy Negative for intraephithelial lesion or malignancy, Other HPV Undetected Undetected, Indeterminate, Quantitative, Not Detected us Historical Provider HEALTH MAINTENANCE Final Result from Last 3 Months or Most Recently Relevant to Health Maintenance Insurance [facility] C3 Care Teams Bomb Loader Relationship Specialty Start Date End Date Ruth Rlaph NP [address] [place] [phone] PCP - General Family Medicine 01/09/25
--- OUTSIDE RECORDS SUMMARY | 2025-03-09 19:24 | XMS_ITS | Encounter Summary ---
Author Organization [employer] Address [address] [facility] [address] [place] [address] Care Team Providers Care Director Data Processing Name Role Phone Ruth Ralph NP Primary Care Provider [phone] Reason for Visit * Reason Onset Date Comments April Recall 03/09/2025 Encounter Details Date Type Department Care Team ([facility] st Contact Info) Description 03/09/2025 Telephone [facility] [address] [place], [place] [phone] Ruth Ralph NP [address] [place], [place] [phone] April Recall Social History Tobacco Use Types Packs/Day Years Used Date Smoking Tobacco: Never Passive Smoke Exposure: Never Smokeless Tobacco: Never Alcohol Use Standard Drinks/Week Comments Never 0 [...] Orientation Straight 02/27/2022 10 :16 AM EDT documented as of this encounter Miscellaneous Notes * Telephone Encounter - Aide Humphrey [place] - 03/09/2025 9:46 AM EST Tc to pt for April recall to schedule Pap smear appointment. PCP has no slots available, I offered pt the appointment with another provider and pt refused. Pt would like to wait for availability with PCP. documented in this encounter Plan of Treatment Upcoming Encounters Date Type Department Care Team (Late st Contact Info) Description 05/20/2025 11:30 AM EST Office Visit [facility] [address] [place] [phone] Ruth Ralph NP [address] [place] [phone] documented as of this encounter Visit Diagnoses Not on filedocumented in this encounter Additional Health Concerns Assessment Noted Time PHQ-9 Depression Total Score: 0 11/27/19 25 3:28 PM EDT documented as of this encounter Care Teams Director Data Processing Relationship Specialty Start Date End Date Ruth Ralph NP [address] [place] [address] PCP - General Family Medicine 01/09/25 documented as of this encounter
--- OUTSIDE RECORDS SUMMARY | 2025-03-09 19:24 | XMS_ITS | Encounter Summary ---
Author Organization [employer] Address [address] [facility] [address] [place] [address] Care Team Providers Care Drill Runner Helper Name Role Phone CarrilloRuth guzmán NELA Primary Care Provider [phone] Encounter Details Date Type Department Care Team (Late st Contact Info) Description 03/09/2025 Orders Only [facility] External Provider, [facility] Social History Tobacco Use Types Packs/Day Years [...] AM EDT documented as of this encounter Plan of Treatment Upcoming Encounters Date Type Department Care Team (Late st Contact Info) Description 05/20/2025 11:30 AM EST Office Visit [facility] [address] [place], [place] [phone] Ruth Ralph NP [address] [place], [place] [phone] documented as of this encounter Procedures Procedure Name Priority Date/Time Associated Diagnosis Comments VENOUS BLOOD GAS Routine 03/09/2025 4:39 PM EST HIGH SENSITIVITY TROPONIN I Routine 03/09/2025 4:31 PM EST SARS COV2/INFLUENZA A/B AND RSV RNA QL NAAT Routine 03/09/2025 4:31 PM EST CBC WITH AUTO DIFFERENTIAL Routine 03/09/2025 4:31 PM EST MAGNESIUM Routine 03/09/2025 4:31 PM EST COMPREHENSIVE METABOLIC PANEL Routine 03/09/2025 4:31 PM EST XR CHEST 2 VIEWS Routine 03/09/2025 4:10 PM EST documented in this encounter Results * (ABNORMAL) VENOUS BLOOD GAS (03/09/2025 4:39 PM EST) VBG pH 7.44(H) 7.32 - 7.43 [facility] Comment:METER #: [id number] additional_comment: Cb mahir VBG PCO2 36 mmHg [facility] Comment:METER #: [id number] additional_comment: Cb meliscr VBG PO2 49 mmHg [facility] Comment:METER #: [id number] additional_comment: Cb rochaitanyascr VBG Base Excess 1.7 mmol/L [facility] Comment:METER #: [id number] additional_comment: Cb meliscr VBG HCO3 25 22 - 26 mmol/L [facility] Comment:METER #: [id number] additional_comment: Espinoza marrufo O2 Sat, Stuart 68.0 % [facility] Comment:METER #: [id number] additional_comment: Cb yaron 03/09/2025 4:39 PM EST 03/09/2025 5:10 PM EST us Generic External Data Provider LAB BLOOD ORDERAB LES Final Result [facility] [address] [place] [phone] * SARS-CoV-2 RNA, Influenza A/B, and RSV RNA, Ql NAAT (03/09/2025 4:31 PM EST) Influenza A PCR NEGATIVE Negative [facility] Influenza B PCR NEGATIVE Negative [facility] Resp Syncy Virus RNA Qual PCR NEGATIVE Negative [facility] SARS COV2 PCR NEGATIVE Negative [facility] Comment:All test results mus t [...] use by authorized laboratories.Testing performed on the Altar GeneXpert utilizingreal-time RT-PCR.All SARS CoV2 and positive influenza A/B results arereported to [facility]. 03/09/2025 4:31 PM EST 03/09/2025 4:36 PM EST Generic External Data Provider LAB MICROBIOLOGY - GENERAL ORDERABLES Final Result Performing Organization Address [facility] Co wi Phone Number [facility] [address] [place] [phone] * High Sensitivity Troponin I (03/09/2025 4:31 PM EST) [facility] TROPONIN I HIGH SENSITIVITY <2.7 <3.5 - 17.0 ng/L [facility] Comment:The [place] high sens itivity Troponin-I results should beused in conjunction with other diagnostic information suchas ECG, clinical observations and information, and patientsymptoms to aid in the diagnosis of SC. 03/09/2025 4:31 PM EST 03/09/2025 4:36 PM EST Generic External Data Provider LAB BLOOD ORDERAB LES Final Result Performing Organization Address [facility] Number [facility] [address] [place] [phone] * Magnesium (03/09/2025 4:31 PM EST) [facility] Magnesium 2.0 1.6 - 2.6 mg/dL [facility] 03/09/2025 4:31 PM EST 03/09/2025 4:36 PM EST Generic External Data Provider LAB BLOOD ORDERAB LES Final Result Performing Organization Address [facility] Phone Number [facility] [address] [place] [phone] * (ABNORMAL) Comprehensive Metabolic Panel (03/09/2025 4:31 PM EST) Sodium 142 135 - 145 mmol/L [facility] Potassium 3.9 3.3 - 5.1 mmol/L [facility] Chloride 109(H) 96 - 108 mmol/L [facility] Carbon Dioxide 25 22 - 29 mmol/L [facility] Anion Gap 12 12 - 20 [facility] Urea Nitrogen (BUN) 11 9 - 16 mg/dL [facility] Creatinine, Serum 0.77 0.5 - 1.4 mg/dL [facility] Creatinine Clr Calc Pharmacy 97.0 [facility] Comment:Provided height and weight: 157.48 cm,86.3 kg.eGFR (calculated from the MDRD study equation) and eCrCl(calculated from the Cockcroft-Gault equation) are based ondifferent parameters and may not yield comparable results.If eCrCl result is absurd, please check patient'sheight/weight. Estimated Glomerular Filt Rate >60 [facility] Comment:Chronic Kidney Disea se: Estimated GFR < 60 mL/min/1.86c5Zckxpv Kidney Disease: Estimated GFR < 15 mL/min/1.73m2 Glucose 77 60 - 115 mg/dL [facility] Calcium 9.6 8.4 - 10.2 mg/dL [facility] Bilirubin, Total 0.3 0.0 - 1.0 mg/dL [facility] Aspartate Amino Transferase 21 5 - 31 U/L [facility] Alanine Aminotransferase 14 0 - 31 U/L [facility] Total Protein 7.6 6.5 - 8.0 g/dL [facility] Albumin Level 4.7 3.5 - 5.0 g/dL [facility] Alkaline Phosphatase 82 39 - 117 U/L [facility] 03/09/2025 4:31 PM EST 03/09/2025 4:36 PM EST us Generic External Data Provider LAB BLOOD ORDERAB LES Final Result [facility] [address] [place] [phone] * CBC auto differential (03/09/2025 4:31 PM EST) White Blood Count 9.9 4.8 - 10.8 X10*3/uL [facility] Red Blood Count 4.50 4.20 - 5.50 X10*6/uL [facility] Hemoglobin 13.2 12.0 - 16.0 g/dl [facility] Hematocrit 39.8 37.0 - 47.0 % [facility] Mean Corpuscular Volume 88.4 80.0 - 98.0 fL [facility] Mean Corpuscular Hemoglobin 29.3 27.0 - 33.0 pg [facility] Mean Corpuscular HGB Conc 33.2 31.0 - 35.0 g/dl [facility] Red Cell Distribution Width 12.8 11.0 - 16.0 % [facility] Platelet Count 278 160 - 400 X10*3/uL [facility] Mean Platelet Volume 11.1 9.4 - 12.3 fL [facility] Neutrophils Percent Auto 62.9 45 - 73 % [facility] Imm Gran Pct Auto 0.2 0.0 - 0.4 % [facility] Lymphocytes Percent Auto 29.3 20 - 40 % [facility] Monocytes Percent Auto 6.1 2 - 11 % [facility] Eosinophils Percent Auto 0.9 0 - 4 % [facility] Basophils Percent Auto 0.6 0 - 2 % [facility] NRBC Pct Auto 0.0 0.0 - 0.2 /100WBC [facility] Neutrophils Absolute Auto 6.2 2.0 - 8.3 x10*3/uL [facility] Imm Gran Abs Auto 0.02 0.00 - 0.03 X10*3/uL [facility] Lymphocytes Absolute Auto 2.9 1.2 - 4.9 X10*3/uL [facility] Monocytes Absolute Auto 0.6 0.1 - 1.2 X10*3/uL [facility] Eosinophils Absolute Auto 0.1 0.0 - 0.4 X10*3/uL [facility] Basophils Absolute Auto 0.1 0.0 - 0.2 X10*3/uL [facility] NRBC Abs Auto 0.000 0.0 - 0.012 X10*3/uL [facility] 03/09/2025 4:31 PM EST 03/09/2025 4:36 PM EST us Generic External Data Provider LAB BLOOD ORDERAB LES Final Result [facility] [address] [place] [phone] * XR Chest 2 Views (03/09/2025 4:10 PM EST) Anatomical Region Laterality Modality Chest Radiographic Jenny ging 03/09/2025 4:10 PM EST Narrative 03/09/2025 4:23 PM EST [address] [address] XRay Report Signed Patient: Greta Luz MR#: [id number] [birth year] : 1985 Acct:[id number] Age/Sex: 40 / F ADM Date: 03/09/25 Loc: .ED Attending Dr: Ordering Physician: Sara Trejo Date of Service: 03/09/25 Procedure(s): XR chest 2V Accession Number(s): [id number] cc: Sara Trejo; Ruth Ralph NP Reason for Exam: chest pain EXAMINATION: XR [...] OV> 03/09/25 1620 DD/ 1610 TD/TT: 03/09/25 161 Plant Engineer: Procedure Note [place], Image - 03/09/2025 [facility] [address] [place] [phone] XRay Report Signed Patient: Greta Luz LMR#: [id number] 31 : 1985Acct:[id number] Age/Sex: 40 / FADM Date: 03/09/25 Loc: HO.ED Attending Dr: Ordering Physician: Sara Trejo Date of Service: 03/09/25 Procedure(s): XR chest 2V Accession Number(s): [id number] cc: Sara Trejo; Ruth Ralph NP Reason for Exam: chest pain EXAMINATION: XR CHEST CLINICAL INFORMATION: chest pain COMPARISON: None available. TECHNIQUE: 2 views of the chest were obtained. FINDINGS: No significant abnormality is noted involving the heart, lungs, mediastinum, bony thorax or soft tissues. XR/XR chest 2V IMPRESSION: No acute disease Electronically signed by: Gianluca Jackson MD 03/09/2025 04:20 PM [facility] Dictated By: Gianluca Jackson MD Signed By: <Electronically signed by Gianluca Jackson MD in OV> 03/09/25 162 DD/ 1610 TD/TT: 03/09/251614 Plant Engineer: [facility] External Provider IMG XR PROCEDURES Edited Result - Final documented in this encounter Visit Diagnoses Not on filedocumented in this encounter Additional Health Concerns Assessment Noted Time PHQ-9 Depression Total Score: 0 11/27/19 3:28 PM EDT documented as of this encounter Care Teams Drill Runner Helper Relationship Specialty Start Date End Date Ruth Ralph NP [address] [place] [address] PCP - General Family Medicine 01/09/25 documented as of this encounter
--- OUTSIDE RECORDS SUMMARY | 2025-03-09 19:24 | XMS_ITS | Clinical Summary ---
Author Organization [facility] [address] [facility] Address [facility] [place] [address] Phone Care Team Providers Care Supervisor Framing Mill Name Role Phone IggyCoty NELA Primary Care Provider [phone] Surgical History Surgery Date Site/Laterality Comments APPENDECTOMY [...] Value Date Recorded Sex Assigned at Female 01/19/2025 3:23 PM EDT Legal Sex Female 2:16 AM EST Gender [...] Years) (1 of 2 - PCV) 2002 HPV Vaccines (1 - 3-dose SCD M series) 2010 Cervical Cancer Screening: P ap Smear 06/19/2021 06/19/2018 Cholesterol Screening (Lipid Panel) 04/02/2022 HIV Screening 04/02/2022 Hepatitis C Screening 04/02/2022 Social Influencers of Health Screening 04/02/2022 Depression Screening 04/30/2024 COVID-19 Vaccine (1 - 2024-2 6 season) 2024 Influenza Vaccine (#1) 2024 01/15/2018 DTaP,Tdap,and Td Vaccines (2 - Td or Tdap) 11/20/2027 11/19/2017 RSV Immunization Adult Patie nts (1 - 1-dose 75+ series) 2058 HIB Vaccines Aged Out No longer eligi [...] RESULTING AGENCY - 06/21/2018 3:29 PM EST [id number] THINPREP PAP, IMAGED: NEGATIVE FOR SQUAMOUS INTRAEPITHELIAL [...] PAP HX 2014 NEG, Z12.4 Kim Higuera [facility] CYTOLOGY ORDERABLES Final Result HISTORICAL TESTING LAB RESULTING AGENCY from Last 3 Months or Most Recently Relevant to Health Maintenance Insurance MEDICAID - [place] Care Teams Supervisor Framing Mill Relationship Specialty Start Date End Date Coty Parkinson NP [address] [place] [phone] PCP - General 02/11/18
--- OUTSIDE RECORDS SUMMARY | 2025-03-09 19:24 | XMS_ITS | Encounter Summary ---
Author Organization [employer] Address [address] [facility] [address] [place] [address] Care Team Providers Care Manager Environmental Health Name Role Phone Veronica Driscoll INTERNAL CONTROLS CONSULTANT Primary Care Provider [phone] Ruth Ralph INTERNAL CONTROLS CONSULTANT Primary Care Provider [phone] Reason for Visit * Reason Onset Date Comments Med Refill 09/08/2023 Encounter Details Date Type Department Care Team ([facility] st Contact Info) Description 09/08/2023 Refill [facility] [address] [place], [place] [phone] Veronica Driscoll NP [address] [place] [address] Mild persistent asthma without complication Social History Tobacco Use Types Packs/Day Years Used Date Smoking Tobacco: Never Smokeless Tobacco: Never Alcohol Use Standard Drinks/Week Comments Never 0 (1 standard drink = 0.6 oz pur e alcohol) Depression Answer Date Recorded Patient Health Questionnaire-9 Score 0 08/24/2023 Patient Health Questionnaire-9 Score 0 08/24/2023 Last PHQ-9: Questionnaire Data Not on file 0 08/24/2023 Housing Stability Answer Date Recorded What is your housing situation today? I have joaquin nice 08/24/[address] you li ve. Do you have problems with any of the following? None of the above 08/24/2023 Food Insecurity Answer Date Recorded Within the past 12 months, y ou worried that your food would run out before you got money to buy more: Never True 08/24/2023 Within the past 12 months,th e food you bought just didn't last and you didn't have enough money to get more: Never True Transportation Answer Date Recorded In the past 12 months, has l ack of transportation kept you from medical appts, meetings, work or from getting things needed for daily living? No 08/24/2023 Utilities Answer Date Recorded In the past 12 months, has t he electric, gas, oil or water company threatened to shut off services in your home? I am not sure 08/24/2023 Depression Answer Date Recorded Patient Health Questionnaire-2 Score 0 08/24/2023 Comments No Sex and Gender Information Value [...] Description 05/20/2025 11:30 AM EST Office Visit [facility] [address] [place] [phone] Ruth Ralph NP [address] [place] [address] documented as of this encounter Visit Diagnoses Diagnosis Mild persistent asthma without complication documented in this encounter Additional Health Concerns Assessment Noted Time PHQ-9 Depression Total Score: 0 08/24/19 24 10:18 AM EDT documented as of this encounter Care Teams Manager Environmental Health Relationship Specialty Start Date End Date Veronica Driscoll NP [address] [place] [id number] PCP - General Family Medicine 02/06/23 01/08/25 Ruth Ralph NP [address] [place] [id number] PCP - General Family Medicine 01/09/25 documented as of this encounter
--- OUTSIDE RECORDS SUMMARY | 2025-03-09 19:24 | XMS_ITS | Encounter Summary ---
Author Organization [employer] Address [address] [facility] 7[address] [place] [address] Care Team Providers Care Traveling Missionary Name Role Phone Ruth Ralph NP Primary Care Provider [phone] Reason for Visit * Reason Onset Date Comments results 03/03/2025 Encounter Details Date Type Department Care Team ([facility] st Contact Info) Description 03/03/2025 Telephone [facility] MED & PEDS [address] [place], [place] [phone] Ruth Ralph NP [address] [place] [address] results Social History Tobacco Use Types Packs/Day Years [...] encounter Miscellaneous Notes * Telephone Encounter - Kesha Jackson RN - 03/04/2025 2:55 PM EST Images from the original note were not included. Noted. Pt aware per below PCP message. Ruth Ralph NP to [facility] Team Nurses (Selected Message) 03/04/25 11:33 AM Note CTA ordered, pt aware * Telephone Encounter - Ruth Ralph NP - 03/04/2025 11:33 AM EST CTA ordered, pt aware * Telephone Encounter - Tana Lopez RN - 03/03/2025 2:47 PM EST Incoming call from Aranza at [facility] reporting [address]. documented in this encounter Plan of Treatment Upcoming Encounters Date Type Department Care Team (Late st Contact Info) Description 05/20/2025 11:30 AM EST Office Visit [facility] MED[facility]INE [address] [place] [address] Ruth Ralph NP [address] [place] [address] documented as of this encounter Visit Diagnoses Not on filedocumented in this encounter Additional Health Concerns Assessment Noted Time PHQ-9 Depression Total Score: 0 11/27/19 3:28 PM EDT documented as of this encounter Care Teams Traveling Missionary Relationship Specialty Start Date End Date Ruth Ralph NP [address] [place] [address] PCP - General Family Medicine 01/09/25 documented as of this encounter
--- OUTSIDE RECORDS SUMMARY | 2025-03-09 19:24 | XMS_ITS | Encounter Summary ---
Author Organization [employer] Address [address] [facility] [address] [place] [address] Care Team Providers Care Historian Dramatic Arts Name Role Phone Ruth Ralph NP Primary Care Provider [phone] Reason for Visit * Reason Comments Med Refill Encounter Details Date Type Department Care Team ([facility] st Contact Info) Description 03/04/2025 Refill [facility] MED[facility] [address] [place], [place] [phone] Ruth Ralph NP [address] [place], [place] [phone] Social History Tobacco Use Types Packs/Day Years [...] Description 05/20/2025 11:30 AM EST Office Visit [facility] [address] [place] [address] Ruth Ralph NP [address] [place] [address] documented as of this encounter Visit Diagnoses Not on filedocumented in this encounter Additional Health Concerns Assessment Noted Time PHQ-9 Depression Total Score: 0 11/27/19 25 3:28 PM EDT documented as of this encounter Care Teams Historian Dramatic Arts Relationship Specialty Start Date End Date Ruth Ralph NP [address] [place] [address] PCP - General Family Medicine 01/09/25 documented as of this encounter
[2025-03-09 19:56] VITALS: BP 109/62; PULSE 73; RESP 16; TEMP 36.6; O2SAT 99
== END 2025-03-09 19:57 | disposition home or self-care (01) ==
PROVIDERS: Physician Assistant Medical; Emergency Provider Emergency Medicine; PCP Nurse Practitioner Family
DX: R07.89 Other chest pain (principal)
CPT/HCPCS: 36415; 71046; 80053; 82803; 83735; 84484; 85025; 87637; 93005; 99283; 99284

== ENCOUNTER → 2025-03-09 15:52 | Outpatient (BNV) | payer MEDICAID, SELFPAY | PROVIDERS: Emergency Provider Emergency Medicine; PCP Nurse Practitioner Family; Visit Provider Internal Medicine Cardiovascular Disease | DX: R07.9 Chest pain, unspecified (principal) | CPT/HCPCS: 93010 ==

== ENCOUNTER → 2025-03-09 16:09 | Outpatient (BNV) | payer MEDICAID, SELFPAY | PROVIDERS: PCP Nurse Practitioner Family; Visit Provider Radiology Diagnostic Radiology | DX: R07.9 Chest pain, unspecified (principal) | CPT/HCPCS: 71046 ==